=== PATIENT | male | born 1960 | race Caucasian/White ===

== ENCOUNTER → 2017-05-28 | Outpatient (CLI) | payer OTHER | END | disposition home or self-care (01) | LOC: LAB.O 08:13 | PROVIDERS: ATTEND Nurse Practitioner Family | DX: Z00.00 Encounter for general adult medical examination without abnormal findings (principal) ==

== ENCOUNTER 2019-07-01 05:30 | Day surgery (SDC) | payer BC, OTHER ==
[2019-07-01] MEDS ORDERED: LIDOCAINE 1% 10 ML VIAL INJ ONE (07:00)
[2019-07-01] MEDS ORDERED: PROPOFOL 200 MG/20 ML VIAL IV ONE (07:00)
[2019-07-01] MEDS ORDERED: LACTATED RINGERS 1,000 ML ONE (07:04)
[2019-07-01] MEDS ORDERED: MIDAZOLAM INJ 2 MG/2 ML VIAL ONE (07:53)
[2019-07-01] MEDS ORDERED: KETAMINE HCL 100 MG/ML VIAL ONE (07:53)
--- NOTE | 2019-07-01 09:04 | OP ---
DATE OF PROCEDURE: 07/01/19 PREOPERATIVE DIAGNOSIS: 1. Screening colonoscopy. POSTOPERATIVE DIAGNOSIS: 1. Polyps times 2. PROCEDURE: 1. Colonoscopy. SURGEON: Yo Ramos MD ANESTHESIA: General. PROCEDURE: General anesthesia was induced in the lateral position. Digital rectal exam was normal. Normal feeling prostate. The colonoscope was inserted without difficulty. We identified an approximately 3 mm polyp at about 25 cm. It was excised completely with forceps. No bleeding. The remainder of the exam went to the cecum with little difficulty. Upon withdrawal, no significant polyps were seen, but for one more small polyp near the mid-rectum at about 15 cm. This was about 2 mm and excised completely with forceps. The patient tolerated the procedure and was taken to Recovery to be discharged. #[id number] MTDD
[2019-07-01 09:38] VITALS: BP 142/85; TEMP 96.9; O2SAT 97
== END 2019-07-01 09:30 | disposition home or self-care (01) ==
LOC: AMB 05:30
PROVIDERS: ATTEND Surgery
DX: Z12.11 Encounter for screening for malignant neoplasm of colon (principal); K63.5 Polyp of colon; K59.00 Constipation, unspecified; E11.9 Type 2 diabetes mellitus without complications; I10 Essential (primary) hypertension; Z88.8 Allergy status to other drugs, medicaments and biological substances; Z96.652 Presence of left artificial knee joint; Z87.891 Personal history of nicotine dependence; Z79.899 Other long term (current) drug therapy
CPT/HCPCS: 00811; 45380; J2250; J3490; J7120